=== PATIENT | female | born 1975 | race Caucasian/White ===

== ENCOUNTER 2017-12-15 06:50 | Day surgery (SDC) | payer OTHER ==
[2017-12-12 10:57] VITALS: BMI 31.6
[2017-12-15 07:48] VITALS: BP 127/78; TEMP 98
--- NOTE | 2017-12-15 09:26 | RAD ---
CERVICAL MYELOGRAM LUMBAR MYELOGRAM: DATE: 12/15/17. COMPARISON: None. HISTORY: Back pain, lower extremity radiculopathy, left upper extremity radiculopathy. FINDINGS: Informed consent was obtained prior to the procedure. [employer] imaging of the cervical spine demonstrates anterior diskectomy and fusion hardware at C5-6/C6-7 with bilateral facet and uncovertebral osteophyte formation at C4-5 through C6-7, left greater than right. 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 Clips in the right upper quadrant suggest prior c holecystectomy. Informed consent was obtained prior to the procedure. The patient was placed in the oblique prone position on the fluoroscopic table and the skin overlying the lumbar spine was prepped and draped in normal sterile fashion. The skin overlying the L3-4 level was anesthetized with 1% buffered Lidocaine. With intermittent flu oroscopic guidance, a 22-gauge spinal needle was advanced into the thecal sac and removal of the styl ette yields clear cerebrospinal fluid. Subsequently, approximately 10-12 cc of Isovue 300 was inject ed, outlining nerve roots of the cauda equina. The needle was removed. The patient's head was tilte d down to extend some of the contrast media into the cervical spine, which was confirmed with fluoros copy. The patient tolerated the procedure well. CT myelogram of cervical and lumbar spine to follow . IMPRESSION: Postoperative and degenerative changes as described above. Successful cervical spine and lumbar spin e myelogram. POS: [facility]
--- NOTE | 2017-12-15 09:46 | CT ---
CT MYELOGRAM OF THE LUMBAR SPINE: DATE: 12/15/17. COMPARISON: None. HISTORY: Back pain and bilateral lower extremity radiculopathy. TECHNIQUE: Following the intrathecal administration of contrast media, serial axial CT imaging is obtained at 2. 5 mm intervals through the lumbar spine with coronal and sagittal reformatted imaging. There is a transitional vertebral body at the lumbosacral junction labeled L5 for the purposes of thi s exam. T12 vertebral body demonstrates hypoplastic ribs. T11-12: There is disk space narrowing and anterior osteophyte formation with mild disk bulge. No ce ntral canal or neural foraminal stenosis. T12-L1: There is partial fusion of the facet joint on the right and the intervertebral disk laterall y on the right. 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 No central canal or left neural foraminal stenosis. L1-2: No central canal or neural foraminal stenosis. L2-3: No central canal or neural foraminal stenosis. L3-4: Bilateral facet hypertrophy, right greater than left. Mild right neural foraminal stenosis. No central canal or left neural foraminal stenosis. L4-5: Mild bilateral facet hypertrophy, right greater than left. No significant central canal or ne ural foraminal stenosis. L5-S1: There is bilateral facet hypertrophy, left greater than right. No significant central canal or neural foraminal stenosis. The imaged retroperitoneal structures demonstrate no acute findings. No worrisome lytic or blastic b one lesion. No acute fracture or evidence of dislocation. 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 No severe central ca nal or neural foraminal stenosis is noted on either side at any level. POS: [facility]
--- NOTE | 2017-12-15 10:01 | CT ---
CERVICAL SPINE CT MYELOGRAM: Date: 12/15/17 COMPARISON: None. HISTORY: Cervical spine pain and radiculopathy. TECHNIQUE: Serial axial CT imaging obtained at 2.5 mm intervals from the skull base through the upper thoracic s pine with intrathecal contrast. Coronal and sagittal reformatted imaging obtained. FINDINGS: There is anterior diskectomy and fusion hardware at C5-6/C6-7. No evidence for hardware failure. No significant anterolisthesis or retrolisthesis. C2-3: There is bilateral facet hypertrophy, left greater than right. There is left-sided uncovertebral oste ophyte formation with mild to moderate left neural foraminal stenosis. No significant central canal o r right neural foraminal stenosis. C3-4: Mild disc space narrowing. There is facet and uncovertebral osteophyte formation on the right with mi ld right neural foraminal stenosis. There is mild posterior osteophyte laterally on the right. No sig nificant central canal or left neural foraminal stenosis. C4-5: Disc space narrowing. There is facet and uncovertebral osteophyte formation on the left. No significa nt central canal or neural foraminal stenosis. C5-6: Bilateral uncovertebral osteophyte formation with mild bilateral neural foraminal stenosis. No centra l canal stenosis. C6-7: There is mild bilateral facet and uncovertebral osteophyte formation, left greater than right. No sig nificant central canal or neural foraminal stenosis. C7-T1: No significant central canal or neural foraminal stenosis. There is no acute osseous abnormality. Imaged lung apices appear grossly unremarkable. IMPRESSION: Mild degenerative and postoperative changes as described above. No high grade central canal or neural foraminal stenosis. Please see above discussion. POS: [facility]
[2017-12-15] MEDS ORDERED: Iopamidol-M 300 61% 15 ML VIAL ONE (15:00)
== END 2017-12-15 10:15 | disposition home or self-care (01) ==
LOC: RAD 06:50
PROVIDERS: ATTEND Neurological Surgery
PROC: B01BYZZ Fluoroscopy of Spinal Cord using Other Contrast (ICD-10-PCS; principal; 2017-12-15)
DX: M47.22 Other spondylosis with radiculopathy, cervical region (principal); M51.16 Intervertebral disc disorders with radiculopathy, lumbar region
CPT/HCPCS: 62305; 72126; 72132